=== PATIENT | male | born 1935 | race Caucasian/White ===

== ENCOUNTER → 2019-06-21 | Outpatient (CLI) | payer MEDICARE, BC ==
[~2019-06-21] MED LIST: ARICEPT 5MG PO; ASPIRIN 81M81 MG/TA2 PO; CIPRO 250MG TA250 MG PO; COZAAR 50MG50 MG/TAB PO; IMDUR 60MG60 MG/TAB PO; ISOSORBIDE MON120 MG PO; LEVAQUIN 2250 MG/TAB PO; LEVOXYL0.075 MG PO; MULTI VITAMINS1 TAB PO; NITRO-DUR0.6 MG/PAT TD; PLAQUENIL 200M200 MG PO; PROTONIX 40MG T40 MG PO; REMERON 15M15 MG/TA1 PO; SEROQUEL 2525 MG/TAB PO; TYLENOL 325MG325 MG PO; XANAX .25M0.25 MG/TA PO; ZOCOR 40MG40 MG PO
[2019-06-21 08:15] LABS: COLLECTION METHOD IN
[2019-06-21 09:10] LABS: MUCOUS Present /lpf; PH 7 (5-8); SQUAMOUS EPITHELIAL 0-2 /hpf; URINE APPEARANCE Cloudy; URINE BACTERIA None Seen /hpf; URINE BILIRUBIN Negative (NEGATIVE); URINE BLOOD 2+ (NEGATIVE); URINE COLOR Yellow; URINE GLUCOSE Negative (NEGATIVE); URINE KETONE Negative (NEGATIVE); URINE LEUKOCYTE ESTERASE 3+ (NEGATIVE); URINE NITRATE Negative (NEGATIVE); URINE PROTEIN(semi-quant) Negative (NEGATIVE); URINE RBC 0-2 /hpf; URINE UROBILINOGEN Negative (NEGATIVE)
== END ==
LOC: ZLAB.STJ 07:48
PROVIDERS: Family Medicine
DX: N39.0 Urinary tract infection, site not specified (principal)

== ENCOUNTER 2019-06-22 08:13 | Inpatient (IN) | payer MEDICARE, BC ==
[~2019-06-22] VITALS: Wt 60.0 kg
[2019-06-22] VITALS (337 sets, daily range): BP systolic 129–156; BP diastolic 61–94; PULSE 70–96; TEMP 97.7–98.6; O2SAT 75–100
[~2019-06-22 08:13] MED LIST changes: -ARICEPT 5MG PO; -CIPRO 250MG TA250 MG PO; -MULTI VITAMINS1 TAB PO; -TYLENOL 325MG325 MG PO; -XANAX .25M0.25 MG/TA PO
[2019-06-22 09:02] LABS: BASO % 0.2 % (0.0-2.0); EOS % 0.1 % (0-4.0); GRAN # 7.3 (1.4-6.5); GRAN % 79.4 % (42.2-75.2); HEMOGLOBIN 11.7 g/dl (13.5-18.0); LYMPH # 0.6 (1.2-3.4); LYMPH % 6.3 % (20.0-51.0); MEAN CELL VOLUME 90 fl (80.0-100.0); MEAN CORPUSCULAR HEMOGLOBIN 31 pg (27.0-31.0); MEAN CORPUSCULAR HGB CONC 35 g/dl (33.0-37.0); MEAN PLATELET VOLUME 8.2 fl (7.4-10.4); MONO # 1.2 (0.1-0.6); MONO % 13.3 % (1.7-9.3); PLATELET COUNT 299 K/mm3 (130-400); RED BLOOD COUNT 3.73 M/mm3 (4.20-5.60); REDCELL DISTRIBUTION WIDTH-CV 12.7 % (11.5-14.5)
[2019-06-22 09:03] LABS: HEMATOCRIT 33.6 % (42.0-52.0)
[2019-06-22 09:10] LABS: ALANINE AMINOTRANSFERASE 34 U/L (21-72); ALBUMIN 4.2 gm/dL (3.5-5.0); ALKALINE PHOSPHATASE 60 U/L (50-136); ANION GAP 13 mmol/L (7-16); AST,SGOT 43 U/L (15-37); BILIRUBIN,TOTAL 0.5 mg/dL (0.0-1.0); BLOOD UREA NITROGEN 10 mg/dL (9-20); C-REACTIVE PROTEIN 7.3 mg/dL (0.0-0.9); CARBON DIOXIDE 25 mmol/L (22-30); CREATININE, serum 1.23 (0.66-1.25); GLUCOSE 126 mg/dL (74-106); POTASSIUM 4.1 mmol/L (3.4-5.0); SODIUM 125 mmol/L (137-145); TOTAL PROTEIN 7.4 gm/dL (6.4-8.2)
[2019-06-22 09:19] LABS: ACETAMINOPHEN < 10 ug/mL (10-30); ALCOHOL(ethanol),MEDICAL < 10 mg/dL; SALICYLATE < 1.0 mg/dL
[2019-06-22 09:21] LABS: CHLORIDE 88 mmol/L (98-107)
[2019-06-22] MEDS ORDERED: TYLENOL 325MG325 MG PO (10:07)
[2019-06-22] MEDS ORDERED: CIPRO 250MG TA250 MG PO (10:08)
[2019-06-22] MEDS ORDERED: XANAX .25M0.25 MG/TA PO (10:09)
[2019-06-22] MEDS ORDERED: ARICEPT 5MG PO (10:09)
[2019-06-22] MEDS ORDERED: MULTI VITAMINS1 TAB PO (10:09)
[2019-06-22] MEDS ORDERED: SEROQUEL 2525 MG/TAB PO (10:10)
--- NOTE | 2019-06-22 11:46 | NUR ---
REPORT RECEIVED FROM OLMAN CRONIN IN ED DEPARTMENT.
--- NOTE | 2019-06-22 13:24 | NUR ---
Due to the patient's confusion, FEATHER DRYING MACHINE OPERATOR student contacted the patient's son/TOPHER Najera to discuss a discharge plan. The patient lives at [facility] in [place]. The pateint has a wheelchair and a cane and receives assistance with ADLs. The patient's PCP is Dr. Esparza and [facility] handles the patient's prescriptions. FEATHER DRYING MACHINE OPERATOR student explained the patient choice form and Reinaldo verbalized [facility] is the first and only choice, completed form placed in the chart. The patient has advanced directives in the EMR. environmental services supervisor will continue to follow to ensure a safe discharge.
--- NOTE | 2019-06-22 13:37 | NUR ---
SON CALLED AND UPDATED ON PATIENT'S STATUS.
--- NOTE | 2019-06-22 16:02 | NUR ---
PT TAKEN VIA BED TO CT BY ANGELIKA FOR CT OF HEAD.
--- NOTE | 2019-06-22 16:06 | NUR ---
MEL student faxed updates to Rick at [facility]. director of therapy services will continue to follow.
[2019-06-22 18:02] LABS: CALCIUM 8.5 mg/dL (8.4-10.2); CREATININE, serum 1.08 (0.66-1.25); POTASSIUM 4.1 mmol/L (3.4-5.0)
--- NOTE | 2019-06-22 19:20 | NUR ---
REIVED REPORT FROM MEHRDAD WOODS.
[2019-06-22 21:34] LABS: TRICYCLIC ANTIDEPRESS URINE NEGATIVE
[2019-06-23] VITALS (502 sets, daily range): BP systolic 109–147; BP diastolic 52–81; PULSE 68–85; TEMP 98.1–99.1; O2SAT 92–100
[2019-06-23 05:20] LABS: BASO % 0.4 % (0.0-2.0); EOS # 0.1 (0.0-0.7); EOS % 2.4 % (0-4.0); GRAN # 3.8 (1.4-6.5); GRAN % 70.5 % (42.2-75.2); LYMPH # 0.8 (1.2-3.4); LYMPH % 15.2 % (20.0-51.0); MEAN CELL VOLUME 92 fl (80.0-100.0); MEAN CORPUSCULAR HEMOGLOBIN 32 pg (27.0-31.0); MEAN CORPUSCULAR HGB CONC 34 g/dl (33.0-37.0); MEAN PLATELET VOLUME 8.4 fl (7.4-10.4); MONO # 0.6 (0.1-0.6); MONO % 11.1 % (1.7-9.3); PLATELET COUNT 272 K/mm3 (130-400); RED BLOOD COUNT 3.49 M/mm3 (4.20-5.60); REDCELL DISTRIBUTION WIDTH-CV 12.9 % (11.5-14.5)
[2019-06-23 05:23] LABS: HEMATOCRIT 32.2 % (42.0-52.0)
[2019-06-23 05:31] LABS: ALBUMIN 3.3 gm/dL (3.5-5.0); BILIRUBIN,TOTAL 0.5 mg/dL (0.0-1.0); CALCIUM 8.8 mg/dL (8.4-10.2); CREATININE, serum 1.14 (0.66-1.25); POTASSIUM 3.9 mmol/L (3.4-5.0)
--- NOTE | 2019-06-23 06:13 | NUR ---
Performed bedside swallow study per nursing orders. Patient tolerated sips of water, pudding, and then crackers without coughing or other signs of intolerance.
--- NOTE | 2019-06-23 07:33 | NUR ---
Report given to MEHRDAD Haq.
--- NOTE | 2019-06-23 10:12 | NUR ---
CALLED REGARDING CONSULT FOR UTI/ABX MANAGMENT PER .
--- NOTE | 2019-06-23 16:00 | NUR ---
Pt arrived to room 345 from ICU via bed. He is alert to name, but disoriented to time/date/situation/birthday. He is reoriented by family but continues to be confused. Family states this is his baseline. IVF are infusing into left FA without difficulty. Resp. are even and unlabored. Heart is regular. Knowles cath is draining cloudy, yellow urine. Pt and family oriented to room and to staff. Bed alarm on.
--- NOTE | 2019-06-23 16:10 | NUR ---
Report called to Lizbet CRONIN. All questions answered. Pt and belongings taken up to room 345. Pt's and daughter accompanied Pt.
[2019-06-24 00:05] VITALS: BP 161/52; PULSE 93; TEMP 98.4
--- NOTE | 2019-06-24 00:58 | NUR ---
Patient oriented to self only. Catheter present and draining cloudy, yellow urine. Patient wears gloves to bilateral hands d/t Raynauds syndrome. Denies pain. Patient told this nurse, "I have been thinking about my life. I am tired. I am ready to ." This nurse asked patient, "Are you having thoughts of harming yourself to end your life?" Patient stated, "No, I would never hurt myself, I am just thinking that I am 85 years old and I am tired. I am ready to . I don't have much longer on this earth. Don't you think?" This nurse spoke with patient awhile longer and determined there was no threat to him harming himself. Charge nurse updated. Anitbiotics administred per orders. Denies any further needs. Will continue to monitor.
[2019-06-24 04:05] VITALS: BP 140/65; PULSE 76; TEMP 98.6
[2019-06-24 06:48] LABS: BASO % 0.4 % (0.0-2.0); EOS # 0.3 (0.0-0.7); GRAN # 2.4 (1.4-6.5); GRAN % 54.8 % (42.2-75.2); LYMPH # 1.2 (1.2-3.4); LYMPH % 27.7 % (20.0-51.0); MEAN CELL VOLUME 92 fl (80.0-100.0); MEAN CORPUSCULAR HGB CONC 35 g/dl (33.0-37.0); MEAN PLATELET VOLUME 8.4 fl (7.4-10.4); MONO # 0.5 (0.1-0.6); MONO % 10.7 % (1.7-9.3); PLATELET COUNT 281 K/mm3 (130-400); RED BLOOD COUNT 2.94 M/mm3 (4.20-5.60); REDCELL DISTRIBUTION WIDTH-CV 13.1 % (11.5-14.5)
[2019-06-24 06:52] LABS: HEMATOCRIT 27.1 % (42.0-52.0); HEMOGLOBIN 9.4 g/dl (13.5-18.0); MEAN CORPUSCULAR HEMOGLOBIN 32 pg (27.0-31.0)
[2019-06-24 07:03] LABS: CALCIUM 8.2 mg/dL (8.4-10.2); CREATININE, serum 1.07 (0.66-1.25); MAGNESIUM 1.9 mg/dL (1.6-2.3); POTASSIUM 3.9 mmol/L (3.4-5.0)
[2019-06-24 07:13] VITALS: BP 155/58; PULSE 71; TEMP 98
[2019-06-24 11:43] VITALS: BP 150/56; PULSE 80; TEMP 98
--- NOTE | 2019-06-24 14:26 | NUR ---
PRISCILLA faxed updates to Rick at [facility]. vp celebrity services will continue to follow.
[2019-06-24 15:24] VITALS: BP 148/61; PULSE 72; TEMP 98.4
--- NOTE | 2019-06-24 16:29 | NUR ---
Patient has done well today. I spoke with his daughter & son on the phone to keep them updated on plan of care. We ambulated the halls, steady gait with walker & gaitbelt. Patient has not loved the food, but did provide him with extra chocolate ice cream. IV antibioitcs per orders. Great urine output. Provided pericare & barton care. Patient at sink & brushed his teeth. Will monitor.
--- NOTE | 2019-06-24 18:50 | NUR ---
Patient not interested in dinner. His daughter visited this afternoon. Patient up and has a BM sample sent to lab per orders. Iv antibioitcs per orders. Will report off to nightnurse
[2019-06-24 20:33] VITALS: BP 144/65; PULSE 73; TEMP 98.4
--- NOTE | 2019-06-24 23:40 | NUR ---
Patient is resting well at this time. IV to left forearm noted to have redness and slight edema. Catheter noted to be pulled long term out. Site discontinued. New INT started in right forearm. Flushes with no problems. Patient tolerated this well. Noted to be confused at baseline. Pleasant with staff. Knowles draining yellow urine. Will continue to monitor patient.
[2019-06-25 00:23] VITALS: BP 155/58; PULSE 73; TEMP 97.6
[2019-06-25 03:25] VITALS: BP 149/61; PULSE 67; TEMP 98
--- NOTE | 2019-06-25 07:00 | NUR ---
Bedside shift report received from MEHRDAD Collado. PT in bed resting with alarm on, denies needs, will continue to monitor.
[2019-06-25 07:01] LABS: BASO % 0.7 % (0.0-2.0); EOS # 0.3 (0.0-0.7); EOS % 7.4 % (0-4.0); GRAN # 2.3 (1.4-6.5); GRAN % 50.4 % (42.2-75.2); HEMOGLOBIN 10.3 g/dl (13.5-18.0); LYMPH # 1.4 (1.2-3.4); LYMPH % 30.6 % (20.0-51.0); MEAN CELL VOLUME 94 fl (80.0-100.0); MEAN CORPUSCULAR HEMOGLOBIN 31 pg (27.0-31.0); MEAN CORPUSCULAR HGB CONC 33 g/dl (33.0-37.0); MEAN PLATELET VOLUME 8.5 fl (7.4-10.4); MONO # 0.5 (0.1-0.6); MONO % 10.5 % (1.7-9.3); PLATELET COUNT 304 K/mm3 (130-400)
[2019-06-25 07:04] LABS: HEMATOCRIT 31.1 % (42.0-52.0)
[2019-06-25 07:06] LABS: CALCIUM 8.7 mg/dL (8.4-10.2); CREATININE, serum 1.01 (0.66-1.25)
[2019-06-25 08:18] VITALS: BP 181/70; PULSE 76; TEMP 97.7
--- NOTE | 2019-06-25 10:46 | NUR ---
Assessment charted. PT doing well, deneis any pain, up with PT ambulates well. Bed alarm on. INT ot RFA. Will continue to montor.
[2019-06-25 11:59] VITALS: BP 163/55; PULSE 68; TEMP 98.3
[2019-06-25 15:44] VITALS: BP 142/74; PULSE 74; TEMP 98.4
--- NOTE | 2019-06-25 17:54 | NUR ---
Pt has done well today. Up ambulating with PT. In chair for most of afternoon reading newspaper and talking to family on phone. Will give bedside shift report to nightshift nurse who will resume care.
[2019-06-25 20:44] VITALS: BP 163/58; PULSE 72; TEMP 98.2
[2019-06-26 01:09] VITALS: BP 159/62; PULSE 73; TEMP 97.5
[2019-06-26 04:57] VITALS: BP 150/56; PULSE 79; TEMP 98.2
[2019-06-26 06:31] LABS: BASO % 0.6 % (0.0-2.0); EOS # 0.4 (0.0-0.7); EOS % 7.3 % (0-4.0); GRAN # 2.6 (1.4-6.5); GRAN % 52.6 % (42.2-75.2); HEMOGLOBIN 10.5 g/dl (13.5-18.0); LYMPH # 1.5 (1.2-3.4); MEAN CELL VOLUME 93 fl (80.0-100.0); MEAN CORPUSCULAR HEMOGLOBIN 31 pg (27.0-31.0); MEAN CORPUSCULAR HGB CONC 34 g/dl (33.0-37.0); MEAN PLATELET VOLUME 8.6 fl (7.4-10.4); MONO # 0.4 (0.1-0.6); MONO % 8.9 % (1.7-9.3); PLATELET COUNT 324 K/mm3 (130-400); RED BLOOD COUNT 3.37 M/mm3 (4.20-5.60); REDCELL DISTRIBUTION WIDTH-CV 12.9 % (11.5-14.5)
--- NOTE | 2019-06-26 06:31 | NUR ---
PT RESTED QUIETLY. AFEBRILE. CO-OPERATIVE WITH CARE. PT DENIED PAIN.
[2019-06-26 06:37] LABS: HEMATOCRIT 31.3 % (42.0-52.0)
[2019-06-26 06:44] LABS: CREATININE, serum 0.97 (0.66-1.25)
--- NOTE | 2019-06-26 07:00 | NUR ---
Report received from JOE Manuel. PT in bed resting, awakens upon entry, trevor needs, will continue to monitor.
[2019-06-26 08:42] VITALS: BP 153/56; PULSE 71; TEMP 98.3
--- NOTE | 2019-06-26 10:05 | NUR ---
Assessment charted. PT resting in bed after ambulating with PT. Doing well, denies pain, IV antibiotics to RFA. Bed alarm on, will continue to monitor.
[2019-06-26] MEDS ORDERED: CIPRO 500MG TA500 MG PO (12:18)
[2019-06-26 12:19] VITALS: BP 153/56; PULSE 71; TEMP 98.3
--- NOTE | 2019-06-26 13:09 | NUR ---
protective services social worker received word from patient's medical staff that he was ready to discharge back to [facility] skilled this day. protective services social worker contacted Rick at [facility] ([phone]) and set-up transportation for 13:00. protective services social worker discussed updates with nurse Gomez and JEANINE Taveras and faxed orders to [facility] ([phone]) including facesheet, certification, medications, summary treatment plan and orders. protective services social worker contacted patient's daughter (Catia) and left a message for her and the family in regards to the patient's discharge plan and update. No further needs at this time.
--- NOTE | 2019-06-26 13:14 | NUR ---
Discharged pateint at this time. INT dc'd at this time. Spoke with daughter regarding discharge plan, she was upset it was happening today instead of tomorrow. Dishcharge packet given to [facility] transport staff. Pt discharged in our scrub pants and clean gown. Left with all belongings, called report to [facility] but no answer, VM left. Faxed f/u appt info to [facility]. Criteria met.
== END 2019-06-26 13:20 | DRG 872 ==
LOC: COL.ER 08:13 → ICU 10:05 → SURG 06-23 17:32
PROVIDERS: Emergency Medicine; Internal Medicine; Nurse Practitioner Family; Physician Assistant; ADMIT Hospitalist
DX: A41.52 Sepsis due to Pseudomonas (principal); N39.0 Urinary tract infection, site not specified; E87.2 Acidosis; E87.1 Hypo-osmolality and hyponatremia; I10 Essential (primary) hypertension; F03.90 Unspecified dementia, unspecified severity, without behavioral disturbance, psychotic disturbance, mood disturbance, and anxiety; K21.9 Gastro-esophageal reflux disease without esophagitis; Z66 Do not resuscitate; E03.9 Hypothyroidism, unspecified; R53.81 Other malaise; E87.8 Other disorders of electrolyte and fluid balance, not elsewhere classified; D64.9 Anemia, unspecified; I44.7 Left bundle-branch block, unspecified; M19.90 Unspecified osteoarthritis, unspecified site; R33.9 Retention of urine, unspecified; R41.0 Disorientation, unspecified; Z79.82 Long term (current) use of aspirin; Z88.2 Allergy status to sulfonamides
CPT/HCPCS: 99222-AI; 99231-AI; 99232-AI; 99233-AI; 99239; A4216; J0696; J1650; J2060; J2543; J3370; J7030; J7050

== ENCOUNTER → 2019-07-21 | Outpatient (CLI) | payer MEDICARE, BC ==
[~2019-07-21] MED LIST changes: +ARICEPT 5MG PO; +CIPRO 250MG TA250 MG PO; +CIPRO 500MG TA500 MG PO; +MULTI VITAMINS1 TAB PO; +TYLENOL 325MG325 MG PO; +XANAX .25M0.25 MG/TA PO
[2019-07-21 11:57] LABS: URINE RBC 0-2 /hpf
[2019-07-21 12:51] LABS: PH 7 (5-8); URINE APPEARANCE Turbid; URINE BILIRUBIN Negative (NEGATIVE); URINE BLOOD 1+ (NEGATIVE); URINE COLOR Yellow; URINE GLUCOSE Negative (NEGATIVE); URINE KETONE Negative (NEGATIVE); URINE LEUKOCYTE ESTERASE 2+ (NEGATIVE); URINE NITRATE Negative (NEGATIVE); URINE PROTEIN(semi-quant) 2+ (NEGATIVE); URINE UROBILINOGEN Negative (NEGATIVE)
[2019-07-21 13:02] LABS: URINE BACTERIA Occasional /hpf
[2019-07-21 13:04] LABS: COLLECTION METHOD CATHETER
== END ==
LOC: ZLAB.STJ 09:19
PROVIDERS: Family Medicine
DX: N39.0 Urinary tract infection, site not specified (principal)

== ENCOUNTER → 2019-08-08 | Outpatient (CLI) | payer MEDICARE, BC ==
[2019-08-08 16:10] LABS: COLLECTION METHOD CLEAN CATCH
[2019-08-08 16:24] LABS: CALCIUM 8.9 mg/dL (8.4-10.2); CREATININE, serum 1.06 (0.66-1.25); PH 7 (5-8); POTASSIUM 4.7 mmol/L (3.4-5.0); SQUAMOUS EPITHELIAL 0-2 /hpf; URINE APPEARANCE Turbid; URINE BACTERIA Rare /hpf; URINE BILIRUBIN Negative (NEGATIVE); URINE BLOOD 1+ (NEGATIVE); URINE COLOR Amber; URINE GLUCOSE Negative (NEGATIVE); URINE KETONE Negative (NEGATIVE); URINE LEUKOCYTE ESTERASE 3+ (NEGATIVE); URINE NITRATE Negative (NEGATIVE); URINE PROTEIN(semi-quant) 2+ (NEGATIVE); URINE RBC 20-50 /hpf; URINE UROBILINOGEN Negative (NEGATIVE); URINE WBC >50 /hpf
== END ==
LOC: ZLAB.STJ 15:38
PROVIDERS: Family Medicine
DX: R79.89 Other specified abnormal findings of blood chemistry (principal); R82.90 Unspecified abnormal findings in urine

== ENCOUNTER → 2019-08-10 | Outpatient (CLI) | payer MEDICARE, BC ==
[2019-08-10 14:45] LABS: COLLECTION METHOD CLEAN CATCH
[2019-08-10 15:08] LABS: PH 8 (5-8); SQUAMOUS EPITHELIAL None Seen /hpf; URINE APPEARANCE Cloudy; URINE BACTERIA None Seen /hpf; URINE BILIRUBIN Negative (NEGATIVE); URINE BLOOD Negative (NEGATIVE); URINE COLOR Amber; URINE GLUCOSE Negative (NEGATIVE); URINE KETONE Negative (NEGATIVE); URINE LEUKOCYTE ESTERASE 3+ (NEGATIVE); URINE NITRATE Negative (NEGATIVE); URINE PROTEIN(semi-quant) 2+ (NEGATIVE); URINE RBC 20-50 /hpf; URINE UROBILINOGEN Negative (NEGATIVE)
== END ==
LOC: ZLAB.STJ 14:13
PROVIDERS: Family Medicine
DX: E87.1 Hypo-osmolality and hyponatremia (principal); R82.90 Unspecified abnormal findings in urine; R82.998 Other abnormal findings in urine

== ENCOUNTER → 2019-08-12 | Outpatient (CLI) | payer MEDICARE, BC ==
[2019-08-12 21:05] LABS: CORTISOL, AM (0800) 13 ug/dL (3-20)
== END ==
LOC: ZLAB.STJ 12:45
PROVIDERS: Family Medicine
DX: R94.6 Abnormal results of thyroid function studies (principal); E27.0 Other adrenocortical overactivity

== ENCOUNTER → 2019-08-23 | Outpatient (CLI) | payer MEDICARE, BC ==
[2019-08-23 14:30] LABS: COLLECTION METHOD CATHETER
[2019-08-23 15:34] LABS: PH 6 (5-8); SQUAMOUS EPITHELIAL None Seen /hpf; URINE APPEARANCE Cloudy; URINE BACTERIA Moderate /hpf; URINE BILIRUBIN Negative (NEGATIVE); URINE BLOOD Negative (NEGATIVE); URINE COLOR Yellow; URINE GLUCOSE Negative (NEGATIVE); URINE KETONE Negative (NEGATIVE); URINE LEUKOCYTE ESTERASE 3+ (NEGATIVE); URINE NITRATE Negative (NEGATIVE); URINE PROTEIN(semi-quant) 1+ (NEGATIVE); URINE RBC 20-50 /hpf; URINE UROBILINOGEN Negative (NEGATIVE)
== END ==
LOC: ZLAB.STJ 13:40
PROVIDERS: Family Medicine
DX: N39.0 Urinary tract infection, site not specified (principal)

== ENCOUNTER → 2019-09-20 | Outpatient (CLI) | payer MEDICARE, BC ==
[2019-09-20 10:29] LABS: COLLECTION METHOD CATHETER
[2019-09-20 10:44] LABS: MUCOUS Present /lpf; PH 6 (5-8); SQUAMOUS EPITHELIAL 0-2 /hpf; URINE APPEARANCE Turbid; URINE BACTERIA None Seen /hpf; URINE BILIRUBIN Negative (NEGATIVE); URINE BLOOD Negative (NEGATIVE); URINE COLOR Amber; URINE GLUCOSE Negative (NEGATIVE); URINE KETONE Negative (NEGATIVE); URINE LEUKOCYTE ESTERASE 3+ (NEGATIVE); URINE NITRATE Negative (NEGATIVE); URINE PROTEIN(semi-quant) 2+ (NEGATIVE); URINE RBC 20-50 /hpf; URINE UROBILINOGEN Negative (NEGATIVE)
== END ==
LOC: ZLAB.STJ 10:15
PROVIDERS: Family Medicine
DX: N39.0 Urinary tract infection, site not specified (principal)

== ENCOUNTER → 2019-11-11 | Outpatient (CLI) | payer MEDICARE, BC ==
[2019-11-11 14:56] LABS: ALBUMIN 3.8 gm/dL (3.5-5.0); BILIRUBIN,TOTAL 0.6 mg/dL (0.0-1.0); CALCIUM 9.4 mg/dL (8.4-10.2); CHOLESTEROL RISK RATIO 3.1; CREATININE, serum 1.13 (0.66-1.25); POTASSIUM 4.2 mmol/L (3.4-5.0); TOTAL PROTEIN 7.4 gm/dL (6.4-8.2)
== END ==
LOC: ZLAB.STJ 14:23
PROVIDERS: Family Medicine
DX: E87.1 Hypo-osmolality and hyponatremia (principal); I25.10 Atherosclerotic heart disease of native coronary artery without angina pectoris